=== PATIENT | female | born 1960 | race Caucasian/White ===

== ENCOUNTER → 2020-11-15 | Outpatient (CLI) | payer SELFPAY | LOC: KOH-I 13:47 | DX: M79.672 Pain in left foot (principal); M19.072 Primary osteoarthritis, left ankle and foot | CPT/HCPCS: 73630 ==

== ENCOUNTER → 2021-06-11 | Outpatient (CLI) | payer OTHER | LOC: KOH-I 09:48 | DX: M79.671 Pain in right foot (principal); M19.071 Primary osteoarthritis, right ankle and foot | CPT/HCPCS: 73630 ==

== ENCOUNTER → 2021-07-30 | Outpatient (CLI) | payer OTHER | LOC: KOH-I 09:33 | DX: S96.911A Strain of unspecified muscle and tendon at ankle and foot level, right foot, initial encounter (principal); M79.671 Pain in right foot; G89.29 Other chronic pain; M72.2 Plantar fascial fibromatosis; M94.9 Disorder of cartilage, unspecified; X58.XXXA Exposure to other specified factors, initial encounter | CPT/HCPCS: 73718 ==

== ENCOUNTER 2022-01-15 17:57 | Observation (INO) | payer OTHER ==
[~2022-01-15] VITALS: Ht 167.6 cm; Wt 107.5 kg
[2022-01-15 18:37] LABS: HEMOGLOBIN 13.8 gm/dl (12.3-15.3); RED BLOOD COUNT 4.85 M/UL (4.00-5.10)
[2022-01-15 19:35] LABS: BUN/CREATININE RATIO 25 (0-10)
[2022-01-16] MEDS ORDERED: ESCITALOPRAM OX20 MG PO (10:25)
[2022-01-16] MEDS ORDERED: FENOFIBRATE145 MG PO (10:25)
[2022-01-16] MEDS ORDERED: LISINOPRIL40 MG PO (10:26)
[2022-01-16] MEDS ORDERED: ROPINIROLE HCL0.5 MG PO (10:26)
[2022-01-16] MEDS ORDERED: EUTHYROX112 MCG PO (10:26)
[2022-01-16] MEDS ORDERED: ASPIRIN EC81 MG PO (10:27)
[2022-01-16] MEDS ORDERED: JARDIANCE10 MG PO (10:27)
[2022-01-16] MEDS ORDERED: B-121000 MCG PO (10:28)
[2022-01-16] MEDS ORDERED: TRULICITY3 MG/0.5 M SQ (10:28)
[2022-01-16] MEDS ORDERED: VITAMIN D3125 MCG PO (10:29)
[2022-01-16] MEDS ORDERED: IBUPROFEN200 MG PO (10:29)
[2022-01-17] MEDS ORDERED: MECLIZINE HCL25 MG PO (08:37)
== END 2022-01-17 13:57 | disposition home or self-care (01) ==
LOC: ER1 17:57 → MED SURG 4 22:44 → CDU 22:44 → MED SURG 4 23:52
PROVIDERS: Physician Assistant; ADMIT Internal Medicine
DX: R42 Dizziness and giddiness (principal); R26.89 Other abnormalities of gait and mobility; I10 Essential (primary) hypertension; E11.9 Type 2 diabetes mellitus without complications; E03.9 Hypothyroidism, unspecified; E78.5 Hyperlipidemia, unspecified; F41.9 Anxiety disorder, unspecified; Z88.0 Allergy status to penicillin; Z79.82 Long term (current) use of aspirin; Z79.890 Hormone replacement therapy; Z79.84 Long term (current) use of oral hypoglycemic drugs; Z79.899 Other long term (current) drug therapy
CPT/HCPCS: 70450; 70496; 70498; 70551; 71045; 80053; 81001; 82550; 82553; 82962; 84439; 84443; 84484; 85025; 93005; 96361; 99285; G0378; J1650; Q9967